=== PATIENT | male | born 1990 | race Caucasian/White ===

== ENCOUNTER 2017-09-18 20:37 | Emergency (ER) | payer OTHER ==
[~2017-09-18] VITALS: Ht 167.6 cm; Wt 56.9 kg
[2017-09-18 21:10] LABS: ABSOLUTE BASOPHILS 0.1 thou/uL (0.0-0.2); ABSOLUTE MONOCYTES 0.6 thou/uL (0.0-1.2); ABSOLUTE NEUTROPHILS 4.7 thou/uL (1.6-8.1); BASOPHILS 1.3 %; EOSINOPHILS 0.6 %; HEMATOCRIT 48.7 % (42.0-52.0); HEMOGLOBIN 16.5 gm/dL (14.0-18.0); LYMPHOCYTES 26.9 %; MCH 32.1 pg (26.0-34.0); MCHC 33.8 g/dL (28.0-37.0); MCV 94.8 fL (80.0-100.0); MPV 7.8 fl. (7.2-11.1); NUCLEATED RBCS 0 /100WBC; PLATELET COUNT* 227 thou/uL (150-400); POLYS 63.2 %; RBC 5.13 mil/uL (4.50-6.00); RDW-CV 14.7 % (10.5-14.5); WBC 7.4 thou/uL (4.0-11.0)
[2017-09-18 21:24] LABS: CALCIUM 8.9 mg/dL (8.5-10.1); CREATININE 0.9 mg/dL (0.6-1.3); POTASSIUM 3.3 mmol/L (3.5-5.1)
[2017-09-18 21:29] LABS: ALBUMIN 4.8 g/dL (3.4-5.0); MAGNESIUM 2.4 mg/dL (1.8-2.4); PHOSPHORUS* 3.9 mg/dL (2.5-4.9); TOTAL BILIRUBIN 0.6 mg/dL (<0.1-1.0)
[2017-09-18 21:54] LABS: URINE BILIRUBIN NEGATIVE (Negative); URINE BLOOD NEGATIVE (Negative); URINE CLARITY CLEAR; URINE COLOR YELLOW; URINE GLUCOSE-RANDOM NEGATIVE (Negative); URINE KETONES NEGATIVE (Negative); URINE LEUKOCYTES-REFLEX NEGATIVE (Negative); URINE NITRITE-REFLEX NEGATIVE (Negative); URINE PROTEIN NEGATIVE (Negative); URINE SPECIFIC GRAVITY <= 1.005 (1.005-1.030); URINE UROBILINOGEN 0.2 E.U./dl (0.2-1.0)
[2017-09-18 22:03] LABS: AMP/METHAMP Negative (Negative); BARBITURATES Negative (Negative); BENZODIAZEPINES Negative (Negative); COCAINE Negative (Negative); METHADONE Negative (Negative); OPIATES Negative (Negative); PCP Negative (Negative); THC Negative (Negative)
[2017-09-19 09:21] VITALS: BP 108/48
== END 2017-09-19 09:22 | disposition home or self-care (01) ==
LOC: M.ERS 20:37
PROVIDERS: Personal Emergency Response Attendant
DX: F10.129 Alcohol abuse with intoxication, unspecified (principal); R45.851 Suicidal ideations

== ENCOUNTER 2019-06-25 00:30 | Emergency (ER) | payer OTHER ==
[~2019-06-25] VITALS: Ht 167.6 cm; Wt 54.0 kg
[2019-06-25 00:52] LABS: HEMATOCRIT 46.6 % (42.0-52.0); HEMOGLOBIN 16.1 gm/dL (14.0-18.0); MCH 32.1 pg (26.0-34.0); MCHC 34.6 g/dL (28.0-37.0); MPV 7.5 fl. (7.2-11.1); RBC 5.01 mil/uL (4.50-6.00); RDW-CV 14.6 % (10.5-14.5); WBC 6.6 thou/uL (4.0-11.0)
[2019-06-25 01:01] LABS: CALCIUM 9.3 mg/dL (8.5-10.1); POTASSIUM 3.3 mmol/L (3.5-5.1)
[2019-06-25 01:05] LABS: ALBUMIN 4.1 g/dL (3.4-5.0); TOTAL BILIRUBIN 0.5 mg/dL (<0.1-1.0); TOTAL PROTEIN 8.2 g/dL (6.4-8.2)
[2019-06-25 01:25] LABS: ACETAMINOPHEN < 2 ug/mL (10-30); SALICYLATE 3.2 mg/dL (2.8-20.0)
[2019-06-25 01:30] LABS: URINE BILIRUBIN NEGATIVE (Negative); URINE BLOOD NEGATIVE (Negative); URINE CLARITY CLEAR; URINE COLOR YELLOW; URINE GLUCOSE-RANDOM NEGATIVE (Negative); URINE KETONES NEGATIVE (Negative); URINE LEUKOCYTES NEGATIVE (Negative); URINE NITRITE NEGATIVE (Negative); URINE PROTEIN NEGATIVE (Negative); URINE SPECIFIC GRAVITY <= 1.005 (1.005-1.030); URINE UROBILINOGEN 0.2 E.U./dl (0.2-1.0)
[2019-06-25 01:38] LABS: AMP/METHAMP Negative (Negative); BARBITURATES Negative (Negative); BENZODIAZEPINES POSITIVE (Negative); COCAINE Negative (Negative); METHADONE Negative (Negative); OPIATES Negative (Negative); PCP Negative (Negative); THC POSITIVE (Negative)
[2019-06-25 01:46] VITALS: BP 111/79
== END 2019-06-25 01:47 | disposition left against medical advice (07) ==
LOC: M.ERS 00:30
PROVIDERS: Personal Emergency Response Attendant
DX: Z53.21 Procedure and treatment not carried out due to patient leaving prior to being seen by health care provider (principal)

== ENCOUNTER 2019-08-21 02:48 | Emergency (ER) | payer OTHER ==
[~2019-08-21] VITALS: Ht 167.6 cm; Wt 59.0 kg
[2019-08-21 02:50] VITALS: BP 115/70
[2019-08-21 03:40] LABS: ABSOLUTE BASOPHILS 0.1 thou/uL (0.0-0.2); ABSOLUTE EOSINOPHILS 0.1 thou/uL (0.0-0.7); ABSOLUTE MONOCYTES 0.4 thou/uL (0.0-1.2); ABSOLUTE NEUTROPHILS 2.8 thou/uL (1.6-8.1); BASOPHILS 1.4 %; EOSINOPHILS 1.3 %; HEMATOCRIT 47.4 % (42.0-52.0); HEMOGLOBIN 16.3 gm/dL (14.0-18.0); LYMPHOCYTES 23.4 %; MCH 33.1 pg (26.0-34.0); MCHC 34.4 g/dL (28.0-37.0); MCV 96.1 fL (80.0-100.0); MPV 7.2 fl. (7.2-11.1); NUCLEATED RBCS 0 /100WBC; PLATELET COUNT* 227 thou/uL (150-400); POLYS 63.9 %; RBC 4.94 mil/uL (4.50-6.00); RDW-CV 13.9 % (10.5-14.5); WBC 4.4 thou/uL (4.0-11.0)
[2019-08-21 03:42] LABS: CALCIUM 8.4 mg/dL (8.5-10.1); CREATININE 0.8 mg/dL (0.6-1.3); POTASSIUM 3.8 mmol/L (3.5-5.1)
[2019-08-21 03:46] LABS: ALBUMIN 4.5 g/dL (3.4-5.0); MAGNESIUM 2.3 mg/dL (1.8-2.4); TOTAL BILIRUBIN 0.7 mg/dL (<0.1-1.0); TOTAL PROTEIN 8.8 g/dL (6.4-8.2)
--- NOTE | 2019-08-25 13:55 | EKG ---
[place] [address] ELECTROCARDIOGRAM REPORT Name: CHIQUIS PETERSEN Room: 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[place] : 1990 Requested By: Jocy Doty Order Number: [id number] MD: Stan Cortés Measurements Intervals [place] Rate: 89 P: 64 [place]: 127 QRS: 78 QRSD: 108 T: 11 QT: 359 QTc: 437 Interpretive Statements Sinus rhythm RSR' in V1 or V2, probably normal variant Borderline ST depression, anterolateral leads Artifact in lead(s) V1,V2 and baseline wander in lead(s) III,aVL,aVF,V1,V2,V3,V4 No previous ECG available for comparison Electronically Signed On 08-21-2019 13:33:30 SALES SUPPORT ENGINEER by Stan Cortés [email or web address] <ELECTRONICALLY SIGNED> By: Stan Cortés MD, [facility] 08/21/19 1333 0255 0255 Stan Cortés MD, [facility] /EPI
== END 2019-08-21 03:45 | disposition left against medical advice (07) ==
LOC: M.ERS 02:48
PROVIDERS: Emergency Medicine
DX: Z53.21 Procedure and treatment not carried out due to patient leaving prior to being seen by health care provider (principal)

== ENCOUNTER 2019-09-02 23:40 | Emergency (ER) | payer OTHER ==
[~2019-09-02] VITALS: Ht 170.2 cm; Wt 59.0 kg
[2019-09-03 00:17] LABS: ABSOLUTE BASOPHILS 0.1 thou/uL (0.0-0.2); ABSOLUTE EOSINOPHILS 0.1 thou/uL (0.0-0.7); ABSOLUTE LYMPHOCYTES 1.2 thou/uL (0.8-5.3); ABSOLUTE MONOCYTES 0.6 thou/uL (0.0-1.2); ABSOLUTE NEUTROPHILS 1.5 thou/uL (1.6-8.1); BASOPHILS 2.7 %; EOSINOPHILS 1.8 %; HEMATOCRIT 45.2 % (42.0-52.0); HEMOGLOBIN 15.6 gm/dL (14.0-18.0); LYMPHOCYTES 34.5 %; MCH 32.7 pg (26.0-34.0); MCHC 34.5 g/dL (28.0-37.0); MONOCYTES 18.5 %; MPV 6.8 fl. (7.2-11.1); NUCLEATED RBCS 0 /100WBC; PLATELET COUNT* 242 thou/uL (150-400); POLYS 42.5 %; RBC 4.76 mil/uL (4.50-6.00); RDW-CV 14.2 % (10.5-14.5); WBC 3.5 thou/uL (4.0-11.0)
[2019-09-03 00:25] LABS: CALCIUM 8.7 mg/dL (8.5-10.1); CREATININE 0.9 mg/dL (0.6-1.3); POTASSIUM 3.9 mmol/L (3.5-5.1)
[2019-09-03 00:29] LABS: ALBUMIN 4.4 g/dL (3.4-5.0); MAGNESIUM 2.4 mg/dL (1.8-2.4); TOTAL BILIRUBIN 0.5 mg/dL (<0.1-1.0); TOTAL PROTEIN 8.7 g/dL (6.4-8.2)
[2019-09-03 00:33] LABS: AMP/METHAMP Negative (Negative); BARBITURATES Negative (Negative); BENZODIAZEPINES Negative (Negative); COCAINE Negative (Negative); METHADONE Negative (Negative); OPIATES Negative (Negative); PCP Negative (Negative); THC POSITIVE (Negative)
[2019-09-03 04:00] VITALS: BP 83/46
== END 2019-09-03 05:26 | disposition home or self-care (01) ==
LOC: M.ERS 23:40
PROVIDERS: Emergency Medicine
DX: F10.129 Alcohol abuse with intoxication, unspecified (principal); Y90.8 Blood alcohol level of 240 mg/100 ml or more; R11.2 Nausea with vomiting, unspecified

== ENCOUNTER 2019-09-26 01:22 | Emergency (ER) | payer OTHER ==
[~2019-09-26] VITALS: Ht 167.6 cm; Wt 59.0 kg
[2019-09-26 01:52] LABS: HEMATOCRIT 37.5 % (42.0-52.0); HEMOGLOBIN 12.9 gm/dL (14.0-18.0); MCH 32.8 pg (26.0-34.0); MCHC 34.5 g/dL (28.0-37.0); MCV 95.1 fL (80.0-100.0); MPV 7.5 fl. (7.2-11.1); RBC 3.94 mil/uL (4.50-6.00); RDW-CV 14.2 % (10.5-14.5); WBC 3.8 thou/uL (4.0-11.0)
[2019-09-26 01:56] LABS: CALCIUM 8.7 mg/dL (8.5-10.1); CREATININE 0.9 mg/dL (0.6-1.3); POTASSIUM 3.3 mmol/L (3.5-5.1)
[2019-09-26 02:01] LABS: ALBUMIN 4.2 g/dL (3.4-5.0); TOTAL BILIRUBIN 1.6 mg/dL (<0.1-1.0); TOTAL PROTEIN 7.8 g/dL (6.4-8.2)
[2019-09-26 02:17] LABS: SALICYLATE < 2.8 mg/dL (2.8-20.0)
[2019-09-26 02:26] LABS: ACETAMINOPHEN < 2 ug/mL (10-30); ALCOHOL < 10 mg/dL (<10)
[2019-09-26 04:06] LABS: URINE BILIRUBIN NEGATIVE (Negative); URINE BLOOD TRACE (Negative); URINE CLARITY CLEAR; URINE COLOR YELLOW; URINE GLUCOSE-RANDOM TRACE (Negative); URINE KETONES 2+ (Negative); URINE LEUKOCYTES NEGATIVE (Negative); URINE NITRITE NEGATIVE (Negative); URINE PROTEIN 2+ (Negative); URINE SPECIFIC GRAVITY >= 1.030 (1.005-1.030)
[2019-09-26 04:10] LABS: AMP/METHAMP Negative (Negative); BARBITURATES Negative (Negative); BENZODIAZEPINES Negative (Negative); COCAINE Negative (Negative); METHADONE Negative (Negative); OPIATES Negative (Negative); PCP Negative (Negative); THC POSITIVE (Negative)
[2019-09-26 04:43] LABS: HYALINE CASTS 0-3 Few /LPF (None Seen); SQUAMOUS 0-3 Few /LPF (0-3)
[2019-09-26 04:44] LABS: BACTERIA 1-9 Few /HPF (None Seen); CRYSTALS None Seen /LPF (None Seen); URINE RBC 0-2 Rare /HPF (0-2); URINE WBC 0-5 Rare /HPF (0-5)
[2019-09-26] MEDS ORDERED: CHLORDIAZEPOXID25 M1 PO (05:02)
[2019-09-26 05:30] VITALS: BP 107/71
--- NOTE | 2019-09-26 16:32 | EKG ---
[place] [address] ELECTROCARDIOGRAM REPORT Name: CHIQUIS PETERSEN Room: [facility]#: [id number] Admission: 09/26/19 Attend Phys: Discharge: 09/26/19 Date of : 88 Date of Service: 09/26/19 0124 Report #: [id number] THIS REPORT FOR: //name// [facility] ED Test Date: 2019-09-26 Test Time: 01:24:43 Pat Name: CHIQUIS PETERSEN Department: Room: Gender: Mailroom Coordinator: : 1990 Requested By: Calli Perez Order Number: [id number] MD: Kody Myrick Measurements Intervals [place] Rate: 82 P: 63 [place]: 134 QRS: 70 QRSD: 108 T: 42 QT: 393 QTc: 459 Interpretive Statements Sinus rhythm Probable left atrial enlargement RSR' in V1 or V2, probably normal variant Compared to ECG 08/21/2019 02:55:52 ST (T wave) deviation no longer present Electronically Signed On 09-26-2019 16:31:48 CDT by Kody Myrick [email or web address] <ELECTRONICALLY SIGNED> By: Kody Myrick MD, FAC 09/26/19 1631 0124 0124 Kody Myrick MD, [facility] /EPI
== END 2019-09-26 05:30 | disposition home or self-care (01) ==
LOC: M.ERS 01:22
PROVIDERS: Personal Emergency Response Attendant
DX: F10.239 Alcohol dependence with withdrawal, unspecified (principal); R56.9 Unspecified convulsions; F17.210 Nicotine dependence, cigarettes, uncomplicated; Y90.0 Blood alcohol level of less than 20 mg/100 ml